=== PATIENT | female | born 1965 | race Caucasian/White ===

== ENCOUNTER → 2016-09-01 | Outpatient (CLI) | payer BC ==
--- NOTE | 2016-09-01 19:19 | XCELERA REPORT ---
[address] [address] Transthoracic Echocardiogram Report Name: AGNES BLACK Age: 50 yrs Gender: Female : 1965 Patient Status: Preadmit Patient Location: Study Date: 09/01/2016 08:37 AM Height: 68 in Weight: 274 lb BSA: 2.3 m2 Procedure: A complete two-dimensional transthoracic echocardiogram was performed (2D, M-mode, spectral and color flow Doppler). The study was technically adequate with some images being suboptimal in quality. Reason For Study: OBESITY E66.01 Ordering Physician: EVELINA GAITAN PA-C Performed By: Valerie Morocho Interpretation Summary The left ventricular ejection fraction is normal. Doppler measurements suggest normal left ventricular diastolic function The left ventricle is grossly normal size. Wall motion cannot be accurately commented on, but no definite regional wall motion abnormalities noted. The right ventricular systolic function is normal. The right atrium is normal in size The left atrium is mildly dilated. There is no mitral valve stenosis. There is a trace to mild amount of mitral regurgitation There is no aortic valve stenosis No aortic regurgitation is present. There is a trace or physiologic amount of tricuspid regurgitation Tricuspid regurgitation jet envelope not well defined to measure RV systolic pressure accurately. There is no pericardial effusion. MMode/2D Measurements \T\ Calculations RVDd: 3.3 cm LVIDd: 4.7 cm FS: 34.0 % Ao root diam: 3.3 cm IVSd: 0.93 cm LVIDs: 3.1 cm EDV(Teich): 104.9 ml LVPWd: 0.88 cmESV(Teich): 39.0 ml Ao root area: 8.6 cm2 EF(Teich): 62.8 % LA dimension: 4.2 cm LVOT diam: 2.2 cm LVOT area: 3.9 cm2 Doppler Measurements \T\ Calculations MV E max lita: MV P1/2t max lita: Ao V2 max: LV V1 max P.8 cm/sec 82.5 cm/sec 118.8 cm/sec 4.4 mmHg MV A max lita: MV P1/2t: 55.7 msec Ao max PG: LV V1 max: 75.2 cm/sec MVA(P1/2t): 4.0 cm2 5.6 mmHg 104.8 cm/sec MV E/A: 1.1 MV dec slope: EVERT(V,D): 3.5 cm2 434.0 cm/sec2 PA V2 max: TR max lita: 101.7 cm/sec 218.4 cm/sec PA max PG: TR max P.1 mmHg 4.1 mmHg Left Ventricle The left ventricle is grossly normal size. The left ventricular ejection fraction is normal. Doppler measurements suggest normal left ventricular diastolic function. Wall motion cannot be accurately commented on, but no definite regional wall motion abnormalities noted. Right Ventricle The right ventricle is normal in size, thickness and function. There is normal right ventricular wall thickness. The right ventricular systolic function is normal. Atria The right atrium is normal in size. The left atrium is mildly dilated. Interarterial septum not well visualized and not well dopplered. Cannot comment on ASD/PFO presence. Mitral Valve The mitral valve is grossly normal. There is no mitral valve stenosis. There is a trace to mild amount of mitral regurgitation. Aortic Valve The aortic valve is grossly normal. There is no aortic valve stenosis. No aortic regurgitation is present. Tricuspid Valve The tricuspid valve is not well visualized, but is grossly normal. There is no tricuspid stenosis. There is a trace or physiologic amount of tricuspid regurgitation. Tricuspid regurgitation jet envelope not well defined to measure RV systolic pressure accurately. Pulmonic Valve The pulmonic valve is not well visualized. Great Vessels The aortic root is not well visualized but is probably normal size. The inferior vena cava appeared normal and decreased > 50% with respiration (RAP 5-10 mmHg). Effusions There is no pericardial effusion. : EVELINA GAITAN PA-C > Corbin Alexander
== END ==
LOC: SP 08:30
PROVIDERS: ATTEND Physician Assistant
DX: E66.01 Morbid (severe) obesity due to excess calories (principal)
CPT/HCPCS: 93306